=== PATIENT | female | born 1950 | race Caucasian/White ===

== ENCOUNTER 2021-08-09 16:11 | Inpatient (IN) | payer MEDICARE, OTHER ==
[~2021-08-09] VITALS: Ht 165.1 cm; Wt 94.1 kg
[2021-08-15] MEDS ORDERED: LISINOPRIL40 MG PO (15:03)
[2021-08-15] MEDS ORDERED: SYNTHROID100 MCG PO (15:04)
[2021-08-15] MEDS ORDERED: NORVASC10 MG PO (15:04)
[2021-08-23] MEDS ORDERED: MULTI-VITAMIN1 EACH PO (15:52)
[2021-08-23] MEDS ORDERED: VAZALORE81 MG PO (15:53)
[2021-08-23] MEDS ORDERED: PRESERVISION A1 EAC3 PO (15:53)
[2021-08-24] MEDS ORDERED: CALCIUM MAGNES1 EAC2 PO (06:14)
--- NOTE | 2021-08-24 09:35 | NUR ---
08/24/21 0935 Liliam Guaman [id number] PT ARRIVED IN PACU WIDE AWAKE WITH NO C/O'S. 0900 TALKING WITH STAFF. SPINAL AT L-1. 0922 TO MS ROOM 119. REPORT GIVEN TO RN. BED PLUGGED IN.
--- NOTE | 2021-08-24 09:40 | NUR ---
0922 - admitted to room 119 from PACU via bed. alert and oriented, on room air, coop with assessment. IVF infusing RW, numbness from above knees down. pt had a spinal anesthesia. pt has a scope patch behind R ear. Above elbow L arm amputaion. f/c not chronic in place, SCDS in place.
--- NOTE | 2021-08-24 10:20 | NUR ---
awake, alert and oriented, on room air, cpox post op in place. tolerating sips of ice cubes and clear liquids, AAT diet. took med w/o problems, Lisinopril Held as she took it this am, amlodipine Held pulse under 60, pt aware. scant amount of vaginal drainage in pad, f/c patent, draining clear liquid urine. still numb below knees area, SCD's in place. IVF infusing w/o problems. family at bedside
--- NOTE | 2021-08-24 11:01 | NUR ---
pt had 100cc undigested food emesis, med with zofran iv. hob elevated
--- NOTE | 2021-08-24 11:27 | NUR ---
DR BARRAGAN HERE SEEING PTS, MEDS CLARIFIED
--- NOTE | 2021-08-24 12:29 | NUR ---
PT ON ROOM AIR, CPOX POST OP AT BEDSIDE, BRADYCHARDIC, DENIES C/O CHEST PAIN OR ANY PAIN AT THIST JANENE, [id number]. STATED NORMAL. POST OP VITALS COMPLETED. NO FURTHER EMESIS, TOLERATING JUICES, ON CLEAR LIQUIDS, WILL AAT IF NO FURTHER EMESIS. SCANT AMOUNT OF RED VAGINAL DISCHARGE, F/C PATENT. DRAINING YELLOW URINE. REPOSITIONED IN BED FOR MEALS. IN ROOM. CALL LIGHT AT BEDSIDE
--- NOTE | 2021-08-24 13:03 | NUR ---
PT WAS TRYING TO EAT CLEAR LIQUIDS DIET, AND HAD 300CC EMESIS. DENIES NEED FOR PHENERGAN "I TRIED TO EAT TOO FAST, STARTED COUGHING AND THEN STARTED THROWING UP.' REPOSITIONED, BED LINED AND GOWN CHANGED. COOPERATIVE, FULL BODY SENSATION, MOVING LEGS WELL, SCDS IN PLACE, F/C PATENT, SCANT AMOUNT OF VAG DRAINAGE NOTED
--- NOTE | 2021-08-24 14:34 | NUR ---
PT RESTING, ON ROOM AIR, SCANT AMOUNT OF VAG DRAINAGE F/C PATENT. IVF INFUSING, NO FURTHER C/O EMESIS, SCDS IN PLACE
--- NOTE | 2021-08-24 17:56 | NUR ---
pt on room air, post op cpox in place. alert and oriented X4, denies c/o pain. IVF infusing w/o problems. 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 Scant amount of vaginal drainage, vaginal pack in place. f/c patent, draining large amounts of urine. SCDS in place. pt got out of bed and stood at edge of bed, tolerated very well, back to bed. helps with repositioning. had 2 episodes of emesis, was medicated with zofran X1 effective. tolerated regular diet at thist henry. tolerating liquids well now. uses call light, family in room, Dr Ashford in room at this time
--- NOTE | 2021-08-24 19:05 | NUR ---
SHIFT REPORT RECEIVED FROM STEWART SHERIDAN AT BEDSIDE. pt AWAKE AND RESTING IN BED, DAUGHTER IN ROOM. IV FLUIDS INFUSING DIRECTED, IV SITE WNL. HALINA PAD IN PLACE, SCANT SEROSANGUINEOUS DRAINAGE NOTED, WILL CONTINUE TO MONITOR. pt DENIES NEEDS OR CONCERNS. CALL LIGHT IN REACH AND SCD'S IN PLACE.
--- NOTE | 2021-08-24 21:00 | NUR ---
IN TO GET VS, PADRON EMPTIED, NO FURTHER NEEDS AT THIS TIME
--- NOTE | 2021-08-24 21:34 | NUR ---
ASSESSMENT COMPLETE, SCHEDULED MEDS GIVEN (SEE EMAR). pt AWAKE AND RESTING IN BED, DENIES PAIN AND NAUSEA. CMS INTACT, pt DENIES NUMBNESS AND TINGLING. SCD'S ALSO IN PLACE. VAGINAL PACKING REMAISN IN PLACE, SCANT LIGHT SEROSANGUINEOUS DRAINAGE NOTED, WILL CONITNUE TO MONITOR. IV SITE WNL, FLUSHES EASILY. IV FLUIDS INFUSING DIRECTED. NO FURTHER NEEDS, CALL LIGHT INR EACH AND FRESH WATER PROVIDED. PADRON CATHETER REMAISN PATENT AND DRAINING WNL.
--- NOTE | 2021-08-25 00:37 | NUR ---
rounded on pt, pt awake and resting in bed. up sba to ambulate in hallway, steady on feet. ambulated from pt room (#119) to room #123 and back. stat lock to left thigh, adrian catheter emptied and remains patent. assisted with repositioning, scd's in place and call light in reach. fresh water provided.
--- NOTE | 2021-08-25 01:51 | NUR ---
ROUNDED ON pt, pt AWOKE TO VOICE. VSS, pt REMAINS ON RA. NO CHANGE TO VAGINAL DRAINAGE. PADRON CATHETER REMAINS PATENT. CPOX IN PLACE, RR EVEN AND UNLABORED. NEW BAG IV FLUIDS INFUSING DIRECTED, IV SITE WNL. CALL LIGHT IN REACH AND SCD'S IN PLACE.
--- NOTE | 2021-08-25 04:45 | NUR ---
ROUNDED ON pt, pt AWAKE AND RESTING IN BED. SCDS IN PLACE, NO NEEDS OR CONCERNS VERBALIZED. CALL LIGHT IN REACH.
--- NOTE | 2021-08-25 04:57 | NUR ---
VSS AND I&O'S COMPLETE. pt REMAINS ON RA, CPOX IN PLACE. CATH CARE DONE BY MARYBETH YEPEZ, PADRON CATHETER REMAINS PATENT. IV SITE WNL, FLUIDS INFUSING DIRECTED. FRESH WATER PROVIDED AND CALL LIGHT IN REACH.
--- NOTE | 2021-08-25 05:19 | NUR ---
SCHEDULED THYROID MEDICATION GIVEN, SEE EMAR. NO FURTHER NEEDS. CALL LIGHT IN REACH.
--- NOTE | 2021-08-25 08:15 | NUR ---
REPORT RECEIVED FROM NIGHT RN AND PT CARE RESUMED. PT. IS ALERT AND ORIENTED AND DENIES PAIN. PT. ENCOURAGED TO TRY TO VOID. PT. AMBULATED WITH SBA TO THE BATHROOM AND COULD NOT VOID. VAGINAL PACKING DISLODGED WHILE ON THE TOILET. PERIPAD HAS A SMALL AMOUNT OF SEROSANGUINOUS DRAINAGE AND WAS CHANGED. DISCUSSED VOIDING, PAIN MANAGEMENT AND SAFETY. PT LEFT RESTING WITH CALL LIGHT IN REACH.
--- NOTE | 2021-08-25 09:33 | NUR ---
PATIENT AWAKE IN BED, IN ROOM. VITALS AND I&OS CHARTED. CALL LIGHT IN REACH
--- NOTE | 2021-08-25 11:00 | NUR ---
PT. UNABLE TO VOID AND WAS BLADDER SCANNED. 1235ML SHOWN IN THE BLADDER. CALLED AND ORDER GIVEN FOR PADRON CATH.
--- NOTE | 2021-08-25 15:17 | NUR ---
Pt lives at home with . Pt uses a walker and states the walker at home is new and does not want assistance getting another. Pt states her can drive her around and does not have any financial hardship at this time. 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
--- NOTE | 2021-08-25 15:18 | NUR ---
Pt. is currently contracted with [facility]. 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 Pt states her can drive her around and does not have any financial hardship at this time. 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
--- NOTE | 2021-08-25 15:37 | NUR ---
ROUNDING ON PT. SHE IS RESTING IN BED WITH EYES CLOSED AND AT BEDSIDE. DENIES PAIN OR NEEDS AT THIS TIME.
--- NOTE | 2021-08-25 18:55 | NUR ---
SHIFT RPEORT RECEIVED FROM DAYSHIFT RAPHAEL ASKEW AT BEDSIDE. pt AWAKE AND RESTING IN BED, IN ROOM. PADRON CATHETER PATENT, VOIDING LARGE VOLUMES PER SHIFT REPORT. WILL CONTINUE TO MONITOR. IV SITE WNL, FLUSHES EASILY AND REMAISN SALINE LOCKED. BOARD UPDATED AND CALL LIGHT IN REACH.
--- NOTE | 2021-08-25 19:55 | NUR ---
IN TO GET VITALS, PTs PADRON DOES NOT HAVE MUCH URINE AT THIS TIME, TO EMPTY, NO FURTHER NEEDS
--- NOTE | 2021-08-25 20:27 | NUR ---
ASSESSMENT COMPLETE, PRN MOTRIN GIVEN FOR PRESSURE IN RECTUM AREA, pt DOESN'T REPORT PAIN BUT MORE PRESSURE. WILL MONITOR. PADRON CATHETER PATENT, CATH CARE DONE AND HALINA PAD IN PLACE. SCANT LIGHT RED VAGINAL DRAINAGE NOTED. HOB ELEVATED AND pt RESTING IN BED, VSS. SCD'S IN PLACE. NO FURTHER NEEDS, CALL LIGHT IN REACH.
--- NOTE | 2021-08-25 21:02 | NUR ---
EULALIA CALLED AND WANTED US TO TELL PT HE GOT HOME. PT GIVEN MSG AND SHE DENIES FURTHER NEEDS. CALL LIGHT IS CLOSE.
--- NOTE | 2021-08-25 22:30 | NUR ---
ROUNDED ON pt, pt RESTING QUIETLY IN BED ON RA. EYES CLOSED. RR EVEN AND UNLABORED. IV SITE WNL, REMAINS SALINE LOCKED. PADRON CATHETER REMAINS PATENT, OUTPUT SEEMS TO HAVE SLOWED DOWN. WILL CONTINUE TO MONITOR. CALL LIGHT IN REACH.
--- NOTE | 2021-08-26 01:22 | NUR ---
ROUNDED ON pt, pt RESTING IN BED ON HER LEFT SIDE. LIGHTS TURNED OFF TO PROMOTE REST/SLEEP. REMAINS ON RA, RR EVEN AND UNLABORED. PADRON CATHETER HAS APPROX 600MLS DILUTED URINE IN BAG, WILL CONTINUE TO MONITOR. CALL LIGHT IN REACH.
--- NOTE | 2021-08-26 02:42 | NUR ---
ROUNDED ON pt, pt AWAKE AND RESTING IN BED. pt REPORTS REMOVING SCD'S SO SHE CAN TURN EASIER IN BED. DENIES PAIN AND NAUSEA. NO CHNAGE TO HALINA PAD. PADRON EMPTIED, 625MLS OUTPUT NOTED AND DOCUMENTED. BOARD UPDATED, NO NEEDS OR CONCERNS VERBALIZED, CALL LIGHT IN REACH.
--- NOTE | 2021-08-26 04:50 | NUR ---
IN TO GET VS, I&Os, PT AWAKENS TO VOICE, RESTING WELL OTHERWISE, NO FURTHER NEEDS AT THIS TIME
--- NOTE | 2021-08-26 04:55 | NUR ---
assessment complete, no acute changes. scheduled thyroid medication given, see emar. pt awake and resting in bed, very interactive and friendly with harness and bag inspector this morning. no further needs or concerns verbalized, call light in reach.
--- NOTE | 2021-08-26 05:07 | NUR ---
scheduled thyroid medication given, see emar. lab in room for am lab draw. no needs or concerns verbalized. pt apears in good spirits. call light in reach and kaylah remains patent.
--- NOTE | 2021-08-26 06:58 | NUR ---
ROUNDED ON pt, PADRON CATHETER EMPTIED. 400MLS OUTPUT NOTED. pt IN GOOD SPIRITS, DENIES NEEDS OR CONCERNS. CALL LIGHT IN REACH.
--- NOTE | 2021-08-26 07:32 | NUR ---
REPORT RECEIVED FROM NIGHT RN AND PT CARE RESUMED. PT. IS ALERT AND DENIES PAIN AT THIS TIME. DISCUSSED NEREIDA RAMIREZ AND SHOWERING. LEFT RESTING WITH CALL LIGHT IN REACH.
--- NOTE | 2021-08-26 07:41 | NUR ---
ON PHONE WITH DR BARRAGAN REGARDING PADRON CATHETER. VERBAL ORDER READ BACK TO PULL PADRON AT THIS TIME. ALSO REVIEWED OUTPUT OVER SHIFT WITH DR BARRAGAN. STEWART ASKEW MADE AWARE TO PULL PADRON.
--- NOTE | 2021-08-26 07:45 | NUR ---
PT. IS ALERT AND ORIENTED. SHE DENIES PAIN AT THIS TIME AND REPORTS MILD RECTAL PRESSURE WHEN STANDING.IV SITE WNL AND FLUSHES. PADRON CATH. REMOVED INTACT AND PT. TOLERATED. SMALL AMOUNT OF PINK DRAINAGE ON PERIPAD AND WAS CHANGED. DISCUSSED POC, VOIDING, PAIN MANAGEMENT. LEFT RESTING WITH CALL LIGHT IN REACH.
--- NOTE | 2021-08-26 09:12 | OR ---
[facility] [address] [place], [place] [address] Signed DATE OF OPERATION: 08/24/2021 SURGEON: Suad Ashford MD VEHICLE SAFETY INSPECTOR: Yandel Villa MD PREOPERATIVE DIAGNOSIS: Rectocele, enterocele. POSTOPERATIVE DIAGNOSIS: Rectocele, enterocele. PROCEDURE: Rectocele repair, enterocele resection, sacrospinous cuff suspension. ANESTHESIA: Spinal with IV sedation. ESTIMATED BLOOD LOSS: 25 mL. DRAINS: Jones catheter. PACKS: Vaginal. INDICATIONS AND FINDINGS: The patient is a 71-year-old female status post a TAHBSO many years ago, who presented with a complaint of a new vaginal bulge. She was diagnosed with a rectocele and a probable enterocele. She elected for surgical intervention. At the time of surgery, exam under anesthesia revealed a grade 3 rectocele with probable enterocele. The cuff was not well supported. There was no real cystocele. DESCRIPTION OF PROCEDURE: The patient was prepped and draped in the dorsal lithotomy position. Gipsy of tissues removed from the perineal body with the knife. The vaginal mucosa was then undermined and incised in the midline to the apex of the vagina. The vaginal mucosa was from the underlying tissue with a combination of blunt and sharp dissection. Electronically Signed By: SUAD ASHFORD MD 08/26/21 0912 PATIENT NAME: RICH COTE OPERATIVE REPORT DATE OF : 50 REPORT #: [id number] PHYSICIAN: SUAD ASHFORD MD PCP: RAMESH JORDAN PA-C REPORT IS CONFIDENTIAL AND NOT TO BE RELEASED WITHOUT AUTHORIZATION [facility] [address], [place] [address] Signed The dissection was carried out superior and laterally to the sacrospinous ligaments as well. During the dissection, the enterocele was entered. This was identified and there was no evidence of any adhesions within the enterocele sac. Following this, because of the poor cuff support, sacrospinous cuff suspension was done. The Capio device was used and a 0 [place]-Josias suture was placed in the mid portion of the sacrospinous ligament and this was attached to the angle of the cuff and tied down. This was done bilaterally. Following this, the enterocele sac was closed with a pursestring suture of 2-0 chromic and the sac resected. Following this, the rectocele repair was begun. There was no remaining perirectal type fascia present for a site specific repair and the levator muscles were plicated in the midline with multiple interrupted sutures of 0 Vicryl. This was done from the apex to the hymenal ring. Following this, a rectal examination was done which confirmed no sutures compromising the rectal lumen. Good reduction of the defect was also noted. Following this, a rectal examination was done which confirmed no sutures compromising FloSeal was then injected around the sacrospinous ligaments on each side to aid in hemostasis. The vaginal mucosa was trimmed a large amount because of the large rectocele. The vaginal mucosa was closed with a running suture of 2-0 Vicryl from the apex of the vagina to the hymenal ring. The perineal body was reapproximated with interrupted sutures of 2-0 Vicryl. The posterior fourchette was recreated with a running suture of 2-0 Vicryl. The skin of the perineum was closed with subcuticular sutures of 2-0 Vicryl. Inspection of the vault showed good length and caliber. Good hemostasis was noted. The vagina was then packed with Premarin coated gauze. All sponge and needle counts were correct. She tolerated the procedure well and was taken to the recovery room in good condition. MD DAFNE HuW/MODL /[id number] cc: Yandel Villa MD [facility] Electronically Signed By: SUAD ASHFORD MD 08/26/2112 PATIENT NAME: RICH COTE OPERATIVE REPORT DATE OF : 50 REPORT #: [id number] PHYSICIAN: SUAD ASHFORD MD PCP: RAMESH JORDAN PA-C REPORT IS CONFIDENTIAL AND NOT TO BE RELEASED WITHOUT AUTHORIZATION [address] [address] Signed Copies: YANDEL VILLA MD ~ Electronically Signed By: SUAD ASHFORD MD 08/26/21 0912 PATIENT NAME: RICH COTE ANTONINO OPERATIVE REPORT DATE OF : 50 REPORT #: [id number] PHYSICIAN: SUAD ASHFORD MD PCP: RAMESH JORDAN PA-C REPORT IS CONFIDENTIAL AND NOT TO BE RELEASED WITHOUT AUTHORIZATION
--- NOTE | 2021-08-26 09:33 | NUR ---
PATIENT AWAKE IN BED, IN ROOM. VITALS AND I&OS CHARTED. PATIENT HAS AMBULETED IN ROOM THIS MORNING AND IS STILL UNABLE TO VOID ON HER OWN. RN AWARE. CALL LIGHT IN EASY REACH, NO OTHER NEEDS AT THIS TIME
--- NOTE | 2021-08-26 11:05 | NUR ---
PT. UNABLE TO VOID AFTER SHOWER. BLADDER SCAN SHOWS 301ML OF URINE IN BLADDER. WILL CONTINUE TO MONITOR.
--- NOTE | 2021-08-26 13:19 | NUR ---
VITALS AND I&OS CHARTED. PATIENT AWAKE IN BED. STILL UNABLE TO VOID, RN IN TO BLADDER SCAN. CALL LIGHT IN REACH
--- NOTE | 2021-08-26 13:50 | NUR ---
PT. USED CALL LIGHT APPROPRIATELY TO REPORT SHE VOIDED. INITIAL BLADDER SCAN WAS 1035ML AND POST-RESIDUAL WAS 350ML. WILL UPDATE MD AND CONTINUE TO MONITOR.
[2021-08-26] MEDS ORDERED: IBUPROFEN800 MG PO (15:59)
[2021-08-26] MEDS ORDERED: OXYCODONE HCL5 MG PO (15:59)
[2021-08-26] MEDS ORDERED: KONDREMUL2.5 ML/5 M PO (16:00)
[2021-08-26] MEDS ORDERED: SENNA-PLUS TAB1 EACH PO (16:01)
--- NOTE | 2021-08-26 16:20 | NUR ---
CATH PLACED USING STERILE TECHNIQUE AND PT. TOLERATED WELL. LEG BAG ATTACHED AND PT. EDUCATED ON CARE. IV REMOVED WITH CATH INTACT AND VITALS ARE STABLE.
--- NOTE | 2021-08-26 17:40 | NUR ---
ALL DISCHARGE INSTRUCTIONS REVIEWED AND QUESTIONS ANSWERED. CATH. CARE EDUCATION PROVIDED. SUPPLIES GIVEN. IV REMOVED AND VITALS STABLE. PT. LEFT VIA WHEEL CHAIR WITH ALL BELONGINGS, AND RN.
== END 2021-08-26 17:50 | disposition home or self-care (01) | DRG 747 ==
LOC: MS 08-24 05:45 → DSVR 08-24 05:45 → MS 08-24 07:00
PROVIDERS: ADMIT Obstetrics & Gynecology; ATTEND Obstetrics & Gynecology
PROC: 0UQF0ZZ Repair Cul-de-sac, Open Approach (ICD-10-PCS; 2021-08-24)
PROC: 0JQC0ZZ Repair Pelvic Region Subcutaneous Tissue and Fascia, Open Approach (ICD-10-PCS; principal; 2021-08-24 07:00)
DX: N81.6 Rectocele (principal); N81.5 Vaginal enterocele; R33.9 Retention of urine, unspecified; R35.89 Other polyuria; Z90.710 Acquired absence of both cervix and uterus; Z90.722 Acquired absence of ovaries, bilateral; Z79.899 Other long term (current) drug therapy; Z98.890 Other specified postprocedural states; Z98.49 Cataract extraction status, unspecified eye; Z90.89 Acquired absence of other organs; Z87.891 Personal history of nicotine dependence; E66.09 Other obesity due to excess calories; Z68.34 Body mass index [BMI] 34.0-34.9, adult; E78.2 Mixed hyperlipidemia; K21.9 Gastro-esophageal reflux disease without esophagitis; Z86.73 Personal history of transient ischemic attack (TIA), and cerebral infarction without residual deficits
CPT/HCPCS: 00940; 36415; 80048; 85025; A9270; C2631; J0694; J1100; J1644; J2001; J2250; J2274; J2405; J2704; J2765; J7121